=== PATIENT | female | born 1955 | race Caucasian/White ===

== ENCOUNTER → 2016-08-24 | Outpatient (CLI) | payer BC | LOC: MC.RAD 16:27 | DX: Z12.31 Encounter for screening mammogram for malignant neoplasm of breast (principal) ==

== ENCOUNTER → 2017-11-30 | Outpatient (CLI) | payer BC | LOC: MC.RAD 13:00 | DX: Z12.31 Encounter for screening mammogram for malignant neoplasm of breast (principal) ==

== ENCOUNTER → 2018-08-27 | Outpatient (CLI) | payer BC | LOC: COL.RAD 07:10 | DX: K44.9 Diaphragmatic hernia without obstruction or gangrene (principal); Z90.49 Acquired absence of other specified parts of digestive tract | CPT/HCPCS: Q9967 ==

== ENCOUNTER → 2019-02-27 | Outpatient (CLI) | payer BC | LOC: MC.RAD 02-20 15:45 | DX: Z12.31 Encounter for screening mammogram for malignant neoplasm of breast (principal) ==

== ENCOUNTER → 2020-04-01 | Outpatient (CLI) | payer BC | LOC: MC.RAD 16:29 | DX: Z12.31 Encounter for screening mammogram for malignant neoplasm of breast (principal) ==

== ENCOUNTER → 2021-06-20 | Outpatient (CLI) | payer BC | LOC: MC.RAD 14:27 | DX: Z12.31 Encounter for screening mammogram for malignant neoplasm of breast (principal) ==